=== PATIENT | female | born 1955 | race Caucasian/White ===

== ENCOUNTER → 2021-10-03 | Outpatient (CLI) | payer SELFPAY ==
[2021-10-04 10:41] LABS: BASOPHILS ABSOLUTE AUTO 0.08 K/mm3 (0.00-0.23); BASOPHILS PERCENT AUTO 1 % (0-2); EOSINOPHILS ABSOLUTE AUTO 0.18 K/mm3 (0.00-0.68); EOSINOPHILS PERCENT AUTO 2 % (0-6); Hematocrit 46.2 % (33.0-51.0); Hemoglobin 15.4 g/dL (11.5-16.0); IMMATURE GRAN ABSOLUTE AUTO 0.03 K/mm3 (0.00-0.10); IMMATURE GRAN PERCENT AUTO 0 % (0-1); LYMPHOCYTES ABSOLUTE AUTO 2.53 K/mm3 (0.84-5.20); LYMPHOCYTES PERCENT AUTO 29 % (21-46); MONOCYTES ABSOLUTE AUTO 0.93 K/mm3 (0.16-1.47); MONOCYTES PERCENT AUTO 11 % (4-13); Mean Corpuscular HGB Conc 33.3 g/dL (31.5-36.5); Mean Corpuscular Volume 96 fL (80-100); Mean Platelet Volume 12.3 fL (9.1-12.4); NEUTROPHILS ABSOLUTE AUTO 4.95 K/mm3 (1.96-9.15); NEUTROPHILS PERCENT AUTO 57 % (41-73); Platelet Count 229 K/mm3 (150-400); RDW Coefficient Variation 12.6 % (11.7-14.2); RDW Standard Deviation 44.3 fL (35.1-46.3); Red Blood Cell Count 4.82 M/mm3 (3.80-5.20)
[2021-10-04 11:34] LABS: Alanine Aminotransfer (ALT/SGP 128 U/L (12-78); Albumin, Blood 3.9 g/dL (3.4-5.0); Alk Phos 107 U/L (50-136); Anion Gap 10 mmol/L (6-16); Aspartate Aminotrans (AST/SGOT 76 U/L (12-37); Bilirubin, Total 0.4 mg/dL (0.1-1.0); Blood Urea Nitrogen 12 mg/dL (8-24); Bun/Creatinine Ratio 14.9 (12.0-20.0); CHOL/HDL RATIO 6.3; CO2, Blood 24 mmol/L (21-32); Calcium, Blood 10.1 mg/dL (8.5-10.1); Chloride, Blood 102 mmol/L (98-108); Cholesterol 266 mg/dL (50-200); Globulin, Blood 4.1 g/dL (2.2-4.0); Glomerular Filtration Rate 80 (60-); Glucose, Blood 118 mg/dL (70-99); HDL Cholesterol 42 mg/dL (>39); LDL/HDL RATIO 4.2; Low Density Lipoprotein Chol 177 mg/dL (0-110); Potassium, Blood 4.2 mmol/L (3.5-5.5); Sodium, Blood 136 mmol/L (136-145); Triglycerides 236 mg/dL (30-160); Very Low Density Lipoprot Chol 47 mg/dL (6-32)
== END | disposition home or self-care (01) ==
LOC: LAB SHORT 15:50
PROVIDERS: Family Medicine
DX: K57.92 Diverticulitis of intestine, part unspecified, without perforation or abscess without bleeding (principal); E66.9 Obesity, unspecified
CPT/HCPCS: 80053; 80061; 84443; 85025

== ENCOUNTER → 2021-10-15 | Outpatient (CLI) | payer OTHER ==
[2021-10-16 22:06] LABS: HBSAG SCREEN Negative (Negative); HCV AB <0.1 (0.0-0.9); HEP B CORE AB, TOT Negative (Negative)
== END | disposition home or self-care (01) ==
LOC: LAB 11:27 → LAB SHORT 11:27
PROVIDERS: Family Medicine
DX: R74.8 Abnormal levels of other serum enzymes (principal)
CPT/HCPCS: 86704; 86708; 86803; 87340

== ENCOUNTER 2023-11-16 22:53 | Observation (INO) | payer OTHER ==
[~2023-11-16] VITALS: Ht 154.9 cm; Wt 88.8 kg
[2023-11-16] MEDS ORDERED: METF500 PO (23:06)
[2023-11-16 23:20] LABS: BASOPHILS ABSOLUTE AUTO 0.06 K/mm3 (0.00-0.23); BASOPHILS PERCENT AUTO 1 % (0-2); EOSINOPHILS ABSOLUTE AUTO 0.31 K/mm3 (0.00-0.68); EOSINOPHILS PERCENT AUTO 5 % (0-6); Hematocrit 42.2 % (33.0-51.0); Hemoglobin 14.5 g/dL (11.5-16.0); IMMATURE GRAN ABSOLUTE AUTO 0.03 K/mm3 (0.00-0.10); IMMATURE GRAN PERCENT AUTO 0 % (0-1); LYMPHOCYTES ABSOLUTE AUTO 1.61 K/mm3 (0.84-5.20); LYMPHOCYTES PERCENT AUTO 24 % (21-46); MONOCYTES ABSOLUTE AUTO 0.63 K/mm3 (0.16-1.47); MONOCYTES PERCENT AUTO 9 % (4-13); Mean Corpuscular HGB Conc 34.4 g/dL (31.5-36.5); Mean Corpuscular Volume 93 fL (80-100); Mean Platelet Volume 10.1 fL (9.1-12.4); NEUTROPHILS ABSOLUTE AUTO 4.12 K/mm3 (1.96-9.15); NEUTROPHILS PERCENT AUTO 61 % (41-73); Platelet Count 245 K/mm3 (150-400); RDW Coefficient Variation 12.8 % (11.7-14.2); RDW Standard Deviation 43.9 fL (35.1-46.3); Red Blood Cell Count 4.53 M/mm3 (3.80-5.20); White Blood Cell Count 6.76 K/mm3 (4.00-11.30)
[2023-11-16 23:47] LABS: Albumin, Blood 3.8 g/dL (3.4-5.0); Albumin/Globulin Ratio 1.1 (0.8-1.8); Bilirubin, Total 0.3 mg/dL (0.1-1.0); Bun/Creatinine Ratio 12.4 (12.0-20.0); Calcium, Blood 9.9 mg/dL (8.5-10.1); Creatinine, Blood 0.89 mg/dL (0.40-1.00); Globulin, Blood 3.5 g/dL (2.2-4.0); Potassium, Blood 4.1 mmol/L (3.5-5.5); Total Protein, Blood 7.3 g/dL (6.4-8.2)
[2023-11-17] MEDS ORDERED: Aspirin 325 MG Tab PO ONE (02:10)
[2023-11-17] MEDS ORDERED: Clopidogrel Bisulfate 75 MG Tab PO ONE (03:25)
[2023-11-17] MEDS ORDERED: Labetalol HCL 5 MG/ML 4ML Injection (Single Dose) IV PRN (04:00)
[2023-11-17] MEDS ORDERED: Aspirin 81 MG Chew PO SCH (09:00)
[2023-11-17] MEDS ORDERED: Enoxaparin 40 MG/0.4 ML SYR SC SCH (09:00)
[2023-11-17] MEDS ORDERED: Atorvastatin 40 MG Tab PO SCH (09:00)
[2023-11-17] MEDS ORDERED: Losartan Potassium 50 MG Tab PO ONE (12:10)
[2023-11-17] MEDS ORDERED: HydrALAZINE HCl 25 MG Tab PO PRN (15:55)
[2023-11-17] MEDS ORDERED: AmLODIPine Besylate 5 MG Tab PO SCH (16:00)
[2023-11-17 17:23] VITALS: BP 208/95
--- NOTE | 2023-11-17 18:38 | NUR ---
PT ALERT& oRIENTED TIMES 4. BP 208/95 GAVE NORVASC 5 MG RECHED 15 MINUTES 186/ 85, GAVE HYDROYLZINE. yESTERDAY AFTERNOON PATIENT REPORTED THAT SHE LOST USE OF HER RIGHT LIMBS. PATIENT STATED THEY WERE NUMB, WEAK AND TINGLING. SHE STATED, " I LOST COMPLETE CONTROL AND USE OF MY RIGHT SIDE". CURRENTLY, PATIENT HAD NO SIGNS OR SYMPTOMS, NO HEADACHE, NO NUMBNESS OR TINGLING. [facility] WILL PRESS SUPERVISOR PATIENT. PT HAS NO FACIAL DROOP, OR, NUMBNESS OR TINGLING, WEAKNESS REPORTED. WILL HAVE CHANGE OF SHIFT NURSE RECHECK BLOOD PRESSURE.
--- NOTE | 2023-11-17 19:26 | NUR ---
SHIFT SUMMARY CALLED PHYSICAN AND ADVISED OF THE ELEVATED BLOOD PRESSURES. PHYSCIAN ADVISED TO GIVE HYDROLYZINE.
[2023-11-17 20:25] VITALS: BP 178/73
[2023-11-17] MEDS ORDERED: Losartan Potassium 50 MG Tab PO SCH (21:00)
[2023-11-17] MEDS ORDERED: DULoxetine HCL 30 MG Cap DR PO SCH (21:00)
[2023-11-17] MEDS ORDERED: oxyBUTYnin chloride 5 MG TAB PO SCH (21:00)
[2023-11-18 03:24] VITALS: BP 171/76
[2023-11-18 05:42] LABS: Cholesterol 223 mg/dL (50-200); HDL Cholesterol 45 mg/dL (>39); LDL/HDL RATIO 3.2; Low Density Lipoprotein Chol 146 mg/dL (0-110); Triglycerides 161 mg/dL (30-160); Very Low Density Lipoprot Chol 32 mg/dL (6-32)
--- NOTE | 2023-11-18 06:19 | NUR ---
SHIFT SUMMARY PT COOPERATIVE AND PLEASANT. PT HAS NO COMPLAINTS AT THIS TIME. BED IN LOWEST POSITION AND CALL LIGHT IS WITHIN HER REACH. WILL CONTINUE TO MONITOR.
[2023-11-18 07:31] VITALS: BP 187/78
[2023-11-18] MEDS ORDERED: Clopidogrel Bisulfate 75 MG Tab PO SCH (09:00)
[2023-11-18] MEDS ORDERED: Losartan Potassium 50 MG Tab PO SCH (09:00)
[2023-11-18 09:27] LABS: Bun/Creatinine Ratio 14.1 (12.0-20.0); Calcium, Blood 9.4 mg/dL (8.5-10.1); Creatinine, Blood 0.78 mg/dL (0.40-1.00); Potassium, Blood 4.2 mmol/L (3.5-5.5)
[2023-11-18] MEDS ORDERED: Carvedilol 3.125 MG Tab PO SCH (12:00)
[2023-11-18] MEDS ORDERED: AMLO5 PO (14:38)
[2023-11-18] MEDS ORDERED: ASPI81CH PO (14:41)
[2023-11-18] MEDS ORDERED: ATOR40TA PO (14:41)
[2023-11-18] MEDS ORDERED: CLOP75 PO (14:42)
[2023-11-18] MEDS ORDERED: CARV3.125 PO (14:42)
[2023-11-18] MEDS ORDERED: DULO30 PO (14:43)
[2023-11-18] MEDS ORDERED: LOSA50 PO (14:43)
[2023-11-18] MEDS ORDERED: OXYB5 PO (14:44)
[2023-11-18 14:45] VITALS: BP 173/93
--- NOTE | 2023-11-18 15:50 | NUR ---
DISCHARGE SUMMARY: A&Ox4. PLEASANT AND COOPERATIVE WITH CARE. CALLS APPROPRIATELY AND IS ABLE TO ADVOCATE NEEDS EFFECTIVELY. INDEPENDENT WITH AMBULATION. ECHO COMPLETED. BP ELEVATED C/W PERMISSIVE HTN. HTN MEDS ADMINISTERED. IV ACCIDENTALLY PULLED SHORTLY BEFORE DISCHARGE. TELE NSR. NO C/O PAIN OR DISCOMFORT. NO DEFICITS. MEDS SENT TO [facility] [place]. DISCHARGED VIA WHEELCHAIR, ESCORTED BY [facility], WITH ALL BELONGINGS AND DISCHARGE PACKET. DAUGHTER PROVIDING TRANSPORTATION VIA PRIVATE VEHICLE AT [id number].
== END 2023-11-18 15:50 | disposition home or self-care (01) ==
LOC: ER 22:53 → ERHOLD 22:54 → MEDS 11-17 17:10
PROVIDERS: Emergency Medicine; Internal Medicine; ADMIT Internal Medicine
DX: G45.9 Transient cerebral ischemic attack, unspecified (principal); E11.9 Type 2 diabetes mellitus without complications; G47.33 Obstructive sleep apnea (adult) (pediatric); E78.5 Hyperlipidemia, unspecified; I10 Essential (primary) hypertension; E66.9 Obesity, unspecified; Z68.34 Body mass index [BMI] 34.0-34.9, adult; Z79.82 Long term (current) use of aspirin; Z79.899 Other long term (current) drug therapy; Z79.84 Long term (current) use of oral hypoglycemic drugs; Z99.89 Dependence on other enabling machines and devices
CPT/HCPCS: 36415; 70450; 70551; 80048; 80053; 80061; 85025; 93005; 93010; 93306; 93880; 96372; 99285-25; A9270; G0378; J1650

== ENCOUNTER 2025-03-23 19:54 | Emergency (ER) | payer OTHER ==
[~2025-03-23] VITALS: Ht 154.9 cm; Wt 77.1 kg
[~2025-03-23 19:54] MED LIST: AMLO5 PO; ASPI81CH PO; ATOR40TA PO; CARV3.125 PO; CLOP75 PO; DULO30 PO; LOSA50 PO; METF500 PO; OXYB5 PO
[2025-03-23] MEDS ORDERED: Robaxin750 MG PO (21:26)
[2025-03-23] MEDS ORDERED: RX Prepack 6 Tabs Oxycodone 5mg UD ONE (21:30)
[2025-03-23 22:00] VITALS: BP 148/88
== END 2025-03-23 22:00 | disposition home or self-care (01) ==
LOC: ER 19:54
DX: S42.212A Unspecified displaced fracture of surgical neck of left humerus, initial encounter for closed fracture (principal); E11.9 Type 2 diabetes mellitus without complications; V87.8XXA Person injured in other specified noncollision transport accidents involving motor vehicle (traffic), initial encounter; Z86.73 Personal history of transient ischemic attack (TIA), and cerebral infarction without residual deficits; Z79.84 Long term (current) use of oral hypoglycemic drugs; Z79.82 Long term (current) use of aspirin; Z79.02 Long term (current) use of antithrombotics/antiplatelets; Z79.899 Other long term (current) drug therapy; Z88.5 Allergy status to narcotic agent
CPT/HCPCS: 70450; 72125; 73030; 99284-25; A9270